=== PATIENT | female | born 1965 | race Caucasian/White ===

== ENCOUNTER 2018-08-01 15:43 | Inpatient (IN) ==
[2018-08-01] MEDS ORDERED: 0.9 % SODIUM CHLORIDE 1,000 ML IV ONE (15:59)
[2018-08-01] MEDS ORDERED: ONDANSETRON 4 MG/2 ML VIAL IV ONE (16:02)
[2018-08-01] MEDS ORDERED: HYDROmorphone 2 MG/ML VIAL IV PRN (16:02)
--- NOTE | 2018-08-01 16:14 | Emergency Department Note ---
Abdominal Pain HPI - General Chief Complaint: Abdominal Pain Stated Complaint: upper abd pain, chills, nausea/vomiting Time Seen by Provider: 08/01/18 16:00 Source: patient Mode of arrival: ambulatory Limitations: no limitations - History of Present Illness HPI Narrative: This patient started having right upper quadrant pain with nausea at 2 AM seemed to improve slightly and then got worse about noon today. She is in the ER now about 4 hours later. She has known gallstones and has had gallbladder pain in the past. However she does not have insurance and has been hesitant to get her gallbladder out. - Related Data Home Medications Medication Instructions Recorded Confirmed No Known Home Meds 03/03/17 08/01/18 Allergies Allergy/AdvReac Type Severity Reaction Status Date / Time No Known Drug Allergies Allergy Verified 08/01/18 15:47 Review of Systems All systems ED: reviewed and negative except as stated. 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 Absent: distention, guarding, rebound Abdominal tenderness: Present: RUQ Neurological: Present: alert Psychiatric: Present: normal affect, normal mood Skin: Present: warm, dry, intact Course Vital Signs Temperature 97.7 F 08/01/18 15:44 Pulse Rate 70 08/01/18 15:44 Respiratory Rate 18 08/01/18 15:44 Blood Pressure 199/121 08/01/18 15:44 Pulse Oximetry (%) 99 08/01/18 15:44 Temperature 97.7 F 08/01/18 15:44 Pulse Rate 81 08/01/18 19:31 Respiratory Rate 16 08/01/18 16:38 Blood Pressure 175/96 08/01/18 19:30 Pulse Oximetry (%) 100 08/01/18 19:31 Abdominal Pain - MDM Narrative Medical decision making narrative: This patient has a gallbladder full of stones and some stones and sludge in the common bile duct which is enlarged at 7.5 mm. Patient's liver function tests are normal with a white count is elevated at 14.7. I discussed this case with the surgeon who thinks of medical management and possibly ERCP first is in order. Also discussed the case with Dr. Sanchez who is on board with an ERCP tomorrow night. Dr. Avila will admit the patient to the hospital. - Lab Data Lab results reviewed: Yes I reviewed the patient's lab results. Result diagrams: 08/01/18 16:26 08/01/18 16:26 Lab Results 08/01/18 08/01/18 08/01/18 Range/Units 15:58 16:26 16:26 WBC 14.4 H (4.5-11.0) K/mcL RBC 5.41 H (4.00-5.20) M/mcL Hgb 15.8 H (12.0-15.0) g/dL Hct 47.6 (36.0-48.0) % MCV 88.0 (80.0-100.0) fL MCH 29.2 (26.0-34.0) pg MCHC 33.2 (31.0-36.0) g/dL RDW 12.8 (11.5-14.5) % Plt Count 286 (140-440) K/mcL MPV 8.0 (7.4-10.4) fL Total Counted 100 Seg Neutrophils % 89 H (38-78) % Band Neutrophils % 1 (0-10) % Monocytes % (Manual) 4 (1-12) % Reactive Lymphocytes 6 H (0-2) % Platelet Estimate Normal (NORMAL) RBC Morphology Normal (NORMAL) VBG Lactic Acid 0.8 (0.5-2.2) mmol/L Sodium 137 (133-145) mmol/L Potassium 4.2 (3.3-5.1) mmol/L Chloride 97 (96-108) mmol/L Carbon Dioxide 27 (22-30) mmol/L Anion Gap 13.0 (8-16) BUN 9 (6-20) mg/dl Creatinine 0.6 (0.6-1.1) mg/dl GFR Calculation 105 Glucose 116 H (70-105) mg/dL Calcium 9.2 (8.6-10.4) mg/dl Total Bilirubin 0.5 (0.0-1.0) mg/dL AST 14 (0-37) U/l ALT 10 (0-40) U/l Alkaline Phosphatase 75 (39-117) U/L Total Protein 7.5 (5.9-8.4) gm/dL Albumin 4.2 (3.2-5.2) gm/dL Globulin 3.3 (2.2-3.7) gm/dL Albumin/Globulin Ratio 1.3 (1.0-2.3) Lipase 13 (7-60) U/L Urine Color Urine Appearance Urine pH (5.0-9.0) Ur Specific [place] (1.000-1.035) Urine Protein (NEG) mg/dL Urine Glucose (UA) (NEG) mg/dL Urine Ketones (NEG) mg/dL Urine Occult Blood (<0.03) mg/dL Urine Nitrate (NEG) Urine Bilirubin (NEG) mg/dL Urine Urobilinogen (NEG) mg/dL Ur Leukocyte Esterase (NEG) /uL Urine RBC (0-1) /hpf Urine WBC (0-4) /hpf Ur Squamous Epith Cells (0-4) /hpf Amorphous Crystals (0) /hpf Urine Bacteria (0) /hpf Urine Mucus (0) /hpf Ur Culture Indicated? 08/01/18 Range/Units 18:32 WBC (4.5-11.0) K/mcL RBC (4.00-5.20) M/mcL Hgb (12.0-15.0) g/dL Hct (36.0-48.0) % MCV (80.0-100.0) fL MCH (26.0-34.0) pg MCHC (31.0-36.0) g/dL RDW (11.5-14.5) % Plt Count (140-440) K/mcL MPV (7.4-10.4) fL Total Counted Seg Neutrophils % (38-78) % Band Neutrophils % (0-10) % Monocytes % (Manual) (1-12) % Reactive Lymphocytes (0-2) % Platelet Estimate (NORMAL) RBC Morphology (NORMAL) VBG Lactic Acid (0.5-2.2) mmol/L Sodium (133-145) mmol/L Potassium (3.3-5.1) mmol/L Chloride (96-108) mmol/L Carbon Dioxide (22-30) mmol/L Anion Gap (8-16) BUN (6-20) mg/dl Creatinine (0.6-1.1) mg/dl GFR Calculation Glucose (70-105) mg/dL Calcium (8.6-10.4) mg/dl Total Bilirubin (0.0-1.0) mg/dL AST (0-37) U/l ALT (0-40) U/l Alkaline Phosphatase (39-117) U/L Total Protein (5.9-8.4) gm/dL Albumin (3.2-5.2) gm/dL Globulin (2.2-3.7) gm/dL Albumin/Globulin Ratio (1.0-2.3) Lipase (7-60) U/L Urine Color Straw Urine Appearance Clear Urine pH 7.0 (5.0-9.0) Ur Specific [place] 1.011 (1.000-1.035) Urine Protein Neg (NEG) mg/dL Urine Glucose (UA) Negative (NEG) mg/dL Urine Ketones 5/tr A (NEG) mg/dL Urine Occult Blood 0.03 A (<0.03) mg/dL Urine Nitrate Neg (NEG) Urine Bilirubin Neg (NEG) mg/dL Urine Urobilinogen Neg (NEG) mg/dL Ur Leukocyte Esterase Neg (NEG) /uL Urine RBC 3 H (0-1) /hpf Urine WBC 1 (0-4) /hpf Ur Squamous Epith Cells < 1 (0-4) /hpf Amorphous Crystals Few A (0) /hpf Urine Bacteria 0 (0) /hpf Urine Mucus Few (0) /hpf Ur Culture Indicated? No - Radiology Data Radiology results reviewed: Yes I reviewed the patient's radiology results. 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
[2018-08-01 16:49] LABS: Mean Corpuscular HGB Conc 33.2 g/dL (31.0-36.0); Mean Corpuscular Hemoglobin 29.2 pg (26.0-34.0); Platelet Count 286 K/mcL (140-440); RBC 5.41 M/mcL (4.00-5.20); Red Cell Distribution Width 12.8 % (11.5-14.5)
[2018-08-01 17:06] LABS: ALT/SGPT 10 U/l (0-40); Albumin 4.2 gm/dL (3.2-5.2); Albumin/Globulin Ratio 1.3 (1.0-2.3); Alkaline Phosphatase 75 U/L (39-117); Blood Urea Nitrogen 9 mg/dl (6-20); Lipase 13 U/L (7-60)
[2018-08-01 17:14] LABS: Band Neutrophils % 1 % (0-10); Monocytes % (Manual) 4 % (1-12); Platelet Estimate NORMAL (NORMAL); RBC Morphology NORMAL (NORMAL); Segmented Neutrophils % 89 % (38-78)
--- NOTE | 2018-08-01 17:20 | Ultrasound Report ---
History: Right upper quadrant pain, nausea, vomiting and chills FINDINGS: The gallbladder is distended and filled with a large amount of sludge and numerous small stones. Most the stones are noncalcified. They were nonmobile when the patient was turned. The wall is mildly thickened, measuring up to 3.6 mm. There was tenderness while scanning over the gallbladder. The extrahepatic bile ducts are dilated and measure up to 7.5 mm. There are stones and sludge in the distal common bile duct which measure up to 5 x 18 mm in size. The liver is normal in size and homogeneous. There is no evidence of a mass or inflammation in the pancreas. No ascites is present. IMPRESSION: Cholelithiasis, mild cholecystitis and choledocholithiasis Dr. Luther was called with the results Interpreted and Authenticated by: Jose Enrique Lim 08/01/18
[2018-08-01] MEDS ORDERED: PIPERACILLIN SODIUM/TAZOBACTAM 3.375 GM in DEXTROSE 5% IN WATER 50 ML IV ONE (19:07)
[2018-08-01 19:19] LABS: Appearance,Urine CLEAR; Bacteria,Urine 0 /hpf (0); Bilirubin,Urine NEG (NEG); Color,Urine STRAW; Glucose,Urine (UA) NEGATIVE (NEG); Leukocyte Esterase,Urine NEG /uL (NEG); Mucus,Urine FEW /hpf (0); Protein,Urine NEG (NEG); Specific Gravity,Urine 1.011 (1.000-1.035); Urine Amorphous Crystals FEW /hpf (0); Urine Blood 0.03 mg/dL (<0.03); Urine RBC 3 /hpf (0-1); Urine Squamous Epithelial Cell < 1 /hpf (0-4); Urine WBC 1 /hpf (0-4); Urobilinogen,Urine NEG (NEG)
[2018-08-01] MEDS ORDERED: FAMOTIDINE/PF 20 MG/2 ML VIAL IV SCH (21:00)
[2018-08-01] MEDS ORDERED: HEPARIN 5,000 UNIT/ML VIAL SQ SCH (21:00)
[2018-08-01] MEDS ORDERED: ONDANSETRON 4 MG/2 ML VIAL IV PRN (21:29)
[2018-08-01] MEDS ORDERED: LABETALOL 5 MG/ML ML IV PRN (21:29)
[2018-08-01] MEDS ORDERED: ACETAMINOPHEN 325 MG TABLET PO PRN (21:29)
[2018-08-01] MEDS ORDERED: NALOXONE HCL 0.4 MG/ML VIAL IV PRN (21:29)
[2018-08-01] MEDS ORDERED: HYDROcodone/APAP 5/325MG TABLET PO PRN (21:29)
[2018-08-01] MEDS ORDERED: DEXTROSE 5%-1/2NS W/20MEQ KCL 1,000 ML IV SCH (21:30)
--- NOTE | 2018-08-01 21:34 | Internal Med History&Physical ---
Medical - H&P: HPI Patient information: Note initiated : 08/01/18 at 9:28 pm Service Date, if different from initiated Date: [] Patient: Jessie Nguyen a 52 y/o F admitted on 08/01/18 for upper abd pain, chills, nausea/vomiting. Chief Complaint: [] History of present illness: Ms. Nguyen is a 52 year old F with h/o gall stones presents to the ER today with complaints of abdominal pain. pain started around 2 AM , epigastric, dull pain, which then moved to the right upper quadrant, patient changed character from dull to crampy pain, pain got progressively worse, worse with food, no reliving factors. The patient also admits to having chills and dizziness, no fever She denies any other acute complaints She has no chest pain, palpitations, shortness of breath, no edema feet, some left shoulder pain which is mechanical in nature, no headache, changes in vision , no difficulty in swallowing. She denies any complaints, admits to intermittent constipation. In the ER the patient was afebrile HR in 70's BP very high 190/120, oxygen sat > 90 on RA labs showed leucocytosis. 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 Medical - H&P: PMH Medical history: HTN - not on meds arthritis-psoriatric Hypothyroidism- resolved as per pt Gall stones anxiety Surgical history: Appendectomy, 1985. Right parotidectomy, 1990. Pertinent family history: mother -HTN Social history: smoker, half pack for 2 yrs daily thc user- notes for therapeutic purpose social etoh denies ivda Medical - H&P: Meds Home Medications Medication Instructions Recorded Confirmed Type No Known Home Meds 03/03/17 08/01/18 History Allergies Allergy/AdvReac Type Severity Reaction Status Date / Time Sulfa (Sulfonamide AdvReac Rash Verified 08/01/18 21:28 Antibiotics) Medical - H&P: Exam - Constitutional Vitals: Temp Pulse Resp BP Pulse Ox 97.7 F 69 16 181/107 100 08/01/18 15:44 08/01/18 20:42 08/01/18 16:38 08/01/18 20:31 08/01/18 20:42 Exam: GENERAL: The patient is a well-developed, well-nourished in no apparent distress. Is alert and oriented x3. VITAL SIGNS: Reviewed and as noted elsewhere. HEENT: Head is normocephalic and atraumatic. Extraocular muscles are intact. Pupils are equal, round, and reactive to light. Nares appeared normal. Mouth appears any without lesions. Mucous membranes are moist. NECK: Normal to inspection, Supple, No lymphadenopathy or thyromegaly. LUNGS: Air entry equal on both sides, no wheezing, crackles or rhonchi noted. No accessory muscles of respiration HEART: Regular rate and rhythm normal, S1 and S2 heard, no Gallop, S3 or Rub Noted, No Gross murmur heard. ABDOMEN: Soft, epigastric and right upper quadrant tenderness. no gross organomegaly palpable. EXTREMITIES: No cyanosis, clubbing, rash, lesions or edema. NEUROLOGIC: Cranial nerves II through XII are grossly intact. Motor and Sensory System Grossly Intact PSYCHIATRIC: Normal affect, Normal Mood. Appropriate Behavior. SKIN: No ulceration or wounds noted, No jaundice, No rash noted. Medical - H&P: Reslt - Labs CBC & Chem 7: 08/01/18 16:26 08/01/18 16:26 Labs: Short CBC 08/01/18 Range/Units 16:26 WBC 14.4 H (4.5-11.0) K/mcL Hgb 15.8 H (12.0-15.0) g/dL Hct 47.6 (36.0-48.0) % Plt Count 286 (140-440) K/mcL BMP 08/01/18 16:26 Sodium 137 Potassium 4.2 Chloride 97 Carbon Dioxide 27 BUN 9 Creatinine 0.6 Glucose 116 H Calcium 9.2 Liver Function 08/01/18 Range/Units 16:26 Total Bilirubin 0.5 (0.0-1.0) mg/dL AST 14 (0-37) U/l ALT 10 (0-40) U/l Alkaline Phosphatase 75 (39-117) U/L Albumin 4.2 (3.2-5.2) gm/dL Urine 08/01/18 Range/Units 18:32 Urine Color Straw Urine Appearance Clear Urine pH 7.0 (5.0-9.0) Ur Specific [place] 1.011 (1.000-1.035) Urine Protein Neg (NEG) mg/dL Urine Glucose (UA) Negative (NEG) mg/dL Medical - H&P: A/P - Narrative A/P Narrative: A/P Hypertensive urgency- Due to non complaince with bp meds, vs acute pain from the gall stones. monitor closely, adequate anagesia, IV labetalol , monitor on tele for now. Choledocholithiasis, with cholecystitis- GI to plan for ERCP tomorrow, Surgery consulted for possible cholecystectomy, PT started on IV zosysn Hypothyroidism/ posiarisis- stable does not take any medications at this time, was on chr pain meds for same, and thyroid supplement in past, no uses THC DVT hep sq Diet - regular, anticipate npo tomorrow for procedure. Full code.
[2018-08-01] MEDS: 0.9 % SODIUM CHLORIDE 10 ML SYRINGE IV SCH (22:33)
[2018-08-02] MEDS: PIPERACILLIN SODIUM/TAZOBACTAM 3.375 GM in DEXTROSE 5% IN WATER 50 ML IV SCH ×5 (00:41→23:51)
[2018-08-02] MEDS: 0.9 % SODIUM CHLORIDE 10 ML SYRINGE IV SCH ×3 (05:57→20:59)
[2018-08-02 07:05] LABS: Basophils # (Auto) 0 K/mcL (0.0-0.3); Basophils % (Auto) 0.1 % (0.0-2.0); Eosinophils # (Auto) 0.1 K/mcL (0.0-0.7); Eosinophils % (Auto) 0.8 % (0.0-7.0); Granulocytes % (Auto) 86.9 % (38.0-78.0); Lymphocytes # (Auto) 0.7 K/mcL (1.5-4.8); Lymphocytes % (Auto) 5.5 % (15.5-49.0); Mean Cell Volume 88.1 fL (80.0-100.0); Mean Corpuscular HGB Conc 33.4 g/dL (31.0-36.0); Mean Corpuscular Hemoglobin 29.4 pg (26.0-34.0); Monocytes # (Auto) 0.9 K/mcL (0.1-0.9); Monocytes % (Auto) 6.7 % (1.0-12.0); Platelet Count 261 K/mcL (140-440); RBC 5.03 M/mcL (4.00-5.20); Red Cell Distribution Width 13.1 % (11.5-14.5)
[2018-08-02 07:41] LABS: ALT/SGPT 156 U/l (0-40); Albumin 3.8 gm/dL (3.2-5.2); Albumin/Globulin Ratio 1.3 (1.0-2.3); Alkaline Phosphatase 116 U/L (39-117); Bilirubin,Direct 0.3 mg/dL (0.0-0.3); Blood Urea Nitrogen 7 mg/dl (6-20); Gamma Glutamyl Transpeptidase 135 U/L (5-36); Uric Acid 2.4 mg/dL (2.5-8.0)
--- NOTE | 2018-08-02 08:06 | Consultation ---
DATE OF CONSULTATION: 08/01/2018 CHIEF COMPLAINT: Common bile duct stone and gallstones in the gallbladder. HISTORY OF PRESENT ILLNESS: The patient is a 52-year-old white female for whom GI consultation is requested regarding the finding of common bile duct stones on ultrasound earlier today. The patient tells me that she has had off and on abdominal pain for about 10 years now. She will typically have pain lasting 30 to 60 minutes at a time. Fortunately, the pain has not been very frequent or severely intense. She has never had jaundice. She has been reluctant to have gallbladder surgery, I believe because of the expense. However, beginning at about 2:00 a.m. this morning and extending to 7 a.m. she had severe pain at the right upper quadrant that was more intense than she has experienced in the past. She has had chills all day long. She has not noticed dark tea-colored urine. No vomiting. She came to the emergency room and has had an ultrasound performed showing multiple stones in the gallbladder, a 7.5 mm common bile duct with stones and/or sludge within the common duct. Her liver chemistries are actually normal. White count is 14,700. She does not drink alcohol. She does smoke a half pack of cigarettes per day. PAST MEDICAL HISTORY: Only mild hypertension, but she is on no medications. PAST SURGICAL HISTORY: Parotid surgery and in 1984 an appendectomy. MEDICATIONS: None at home. ALLERGIES: SULFA. SOCIAL HISTORY: Half pack per day smoker. No alcohol. She is . 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 FAMILY HISTORY: Negative for GI malignancies and/or biliary disease. She has never had a colonoscopy for screening. She understands that she is due for that and that can certainly be arranged when she wishes. PHYSICAL EXAMINATION: GENERAL: The patient is awake and alert, afebrile. Vital signs stable. HEENT: Airway is patent. SKIN: Without stigmata of chronic liver disease. LUNGS: Clear bilaterally to auscultation. CARDIAC: No respiratory distress. ABDOMEN: Soft and nondistended. There is moderate right upper quadrant tenderness and Sierra's sign present. No splenomegaly. No evident ascites. EXTREMITIES: Without edema. CARDIAC: Regular rate and rhythm. No gallop. LABORATORY STUDIES: The white count is elevated at 14,700, lactic acid normal. The liver chemistries are normal. ASSESSMENT AND RECOMMENDATIONS: Even though the patient's liver chemistries are normal, there is ultrasound evidence of stones in the common bile duct. With this in mind, I will plan an ERCP tomorrow afternoon. If Dr. Cardozo elects to proceed to a cholecystectomy before then, I would request an intraoperative cholangiogram to see if the stones can be flushed through the common bile duct; thereby possibly avoiding the need for ERCP. However, if the cholecystectomy is not performed before tomorrow afternoon then I will plan to do the ERCP with sphincterotomy and stone extraction. Miguel I have discussed and brenda pictures of ERCP and the sphincterotomy and interventions to remove stones. I have told her about the risks of the procedure including, but not limited to, bleeding and perforation and pancreatitis. She wishes to proceed. I agree with placing the patient on antibiotic coverage (Zosyn is reasonable). JCM:lola Job ID: [id number] Doc ID: [id number] Wojciech Cardozo MD
[2018-08-02] MEDS ORDERED: LABETALOL 5 MG/ML ML IV PRN (08:19)
[2018-08-02] MEDS ORDERED: ACETAMINOPHEN 325 MG TABLET PO PRN (08:19)
[2018-08-02] MEDS ORDERED: ONDANSETRON 4 MG/2 ML VIAL IV PRN (08:19)
[2018-08-02] MEDS ORDERED: NALOXONE HCL 0.4 MG/ML VIAL IV PRN (08:19)
[2018-08-02] MEDS ORDERED: HYDROcodone/APAP 5/325MG TABLET PO PRN (08:19)
[2018-08-02] MEDS: FAMOTIDINE/PF 20 MG/2 ML VIAL IV SCH ×2 (08:57→21:10)
[2018-08-02] MEDS: HEPARIN 5,000 UNIT/ML VIAL SQ SCH ×2 (08:58→21:10)
[2018-08-02] MEDS: DEXTROSE 5%-1/2NS W/20MEQ KCL 1,000 ML IV SCH ×2 (12:13→21:56)
[2018-08-02] MEDS ORDERED: PROPOFOL 0 ML IV ONE (14:36)
[2018-08-02] MEDS ORDERED: MIDAZOLAM 2 MG/2 ML VIAL ONE ×2 (14:36→15:35)
[2018-08-02] MEDS ORDERED: PROPOFOL 20 ML IV ONE ×2 (14:36→15:35)
[2018-08-02] MEDS: MIDAZOLAM 2 MG/2 ML VIAL IV ONE ×2 (14:46→17:23)
--- NOTE | 2018-08-02 14:53 | General Surgery Progress Note ---
Surgical - Auxillary Note - Subjective Patient Information: Note initiated : 08/02/18 at 2:52 pm Service Date, if different from initiated Date: [] Patient: Jessie Nguyen 52 y/o F admitted on 08/01/18 for upper abd pain, chills, nausea/vomiting. Chief Complaint: [] Patient resting in bed at this visit. Some increased RUQ pain today. No nausea or emesis. Had some clear liquids last night. Now NPO for planned ERCP. Vital Signs Temp Pulse Resp BP Pulse Ox 97.7 F 80 16 143/82 96 08/02/18 12:00 08/02/18 12:00 08/02/18 12:00 08/02/18 12:00 08/02/18 12:00 Period Temp Pulse Resp BP Sys/Phelps Pulse Ox Last 24 Hr 97.1 F-98.2 F 67-89 16-20 143-211/82-123 96-100 Intake and Output 08/02/18 08/02/18 08/02/18 05:59 13:59 21:59 Intake Total 140 / 140 1340 / 1340 Output Total 350 / 350 850 / 850 Balance -210 / -210 490 / 490 PE: HEENT: sclera are white. ABD: soft, tender in mid epigastric area and RUQ. No rebound or guarding. CBC and Chem 7 08/02/18 05:55 08/02/18 05:55 A/P: choledocholithiasis with duct obstruction. Rising LFTs. ERCP scheduled for this afternoon. cholelithiasis.
[2018-08-02] MEDS ORDERED: GLUCAGON,HUMAN RECOMBINANT 1 MG VIAL IV ONE ×2 (15:30→15:35)
--- NOTE | 2018-08-02 15:33 | Internal Med Progress Note ---
Medical - PN: Subj Patient information: Note initiated : 08/02/18 at 3:30 pm Service Date, if different from initiated Date: [] Patient: Jessie Nguyen a 52 y/o F admitted on 08/01/18 for upper abd pain, chills, nausea/vomiting. Chief Complaint: [] Interval history: Ms. Nguyen is a 52 year old F with h/o gall stones presents to the ER today with complaints of abdominal pain. pain started around 2 AM , epigastric, dull pain, which then moved to the right upper quadrant, patient changed character from dull to crampy pain, pain got progressively worse, worse with food, no reliving factors. The patient also admits to having chills and dizziness, no fever She denies any other acute complaints She has no chest pain, palpitations, shortness of breath, no edema feet, some left shoulder pain which is mechanical in nature, no headache, changes in vision , no difficulty in swallowing. She denies any complaints, admits to intermittent constipation. In the ER the patient was afebrile HR in 70's BP very high 190/120, oxygen sat > 90 on RA labs showed leucocytosis. 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 08/02 Pt seen examined no acute oernight issues, lft rising today, her pain has moved down a bit to mid abdomen. no nausea, reported feels a bit better planned ercp today Pertinent ROS: Denies headache, dizziness Denies chest pain, palpitations Denies cough or shortness of breath present abdominal pain, no nausea or vomiting. - Constitutional Vitals: Vital Signs Temp Pulse Resp BP Pulse Ox 97.7 F 80 16 143/82 96 08/02/18 12:00 08/02/18 12:00 08/02/18 12:00 08/02/18 12:08/02/18 12:00 Period Temp Pulse Resp BP Sys/Phelps Pulse Ox Last 24 Hr 97.1 F-98.2 F 67-89 16-20 143-211/82-123 96-100 Intake and Output 08/02/18 08/02/18 08/02/18 05:59 13:59 21:59 Intake Total 140 / 140 1340 / 1340 Output Total 350 / 350 850 / 850 Balance -210 / -210 490 / 490 Intake & Output: Intake & Output 08/02/18 08/02/18 08/02/18 05:59 13:59 21:59 Intake Total 140 / 140 1340 / 1340 Output Total 350 / 350 850 / 850 Balance -210 / -210 490 / 490 Intake: IV 50 / 50 1100 / 1100 Zosyn 3.375 gm In Dextrose 5% 50 / 50 50 / 50 in Water 50 ml @ 100 mls/hr IV Q6H [facility] Rx#:[id number] Oral 90 / 90 240 / 240 Output: Void Amount 350 / 350 850 / 850 Other: Meal Breakfast Percent of Meal Consumed 100% Feeding Ability Independent Urine Appearance Clear Urine Color Straw Urine Odor Normal Exam: Constitutional; Afebrile, cooperative, alert, not in distress. Eyes- No icterus, , No periorbital swelling Ears- Ext ear normal, hearing normal to conversation. Neck- Midline trachea, supple Respiratory system: Air Entry equal on both sides, No crackles or wheezing, no rhonchi. CVS- Rate rhythm regular, S1,S2 heard, no gallop, no rub. Abdomen- Soft tender epigastric, right upper quadrant abdomen, no organomegaly, no guarding or rigidity, VENEER REDRIER- AOOx3, moving all extremities, no gross focal deficit noted. Medical - PN: Obj Da - Labs CBC & Chem 7: 08/02/18 05:55 08/02/18 05:55 Labs: Abnormal Lab Results 08/02/18 08/02/18 08/01/18 05:55 05:55 18:32 WBC 12.7 H RBC Hgb Gran % 86.9 H Lymph % (Auto) 5.5 L Gran # 11.0 H Lymph # (Auto) 0.7 L Seg Neutrophils % Reactive Lymphocytes Glucose 123 H Uric Acid 2.4 L Total Bilirubin 1.4 H GGT 135 H AST 196 H ALT 156 H Urine Ketones 5/tr A Urine Occult Blood 0.03 A Urine RBC 3 H Amorphous Crystals Few A 08/01/18 08/01/18 16:26 16:26 WBC 14.4 H RBC 5.41 H Hgb 15.8 H Gran % Lymph % (Auto) Gran # Lymph # (Auto) Seg Neutrophils % 89 H Reactive Lymphocytes 6 H Glucose 116 H Uric Acid Total Bilirubin GGT AST ALT Urine Ketones Urine Occult Blood Urine RBC Amorphous Crystals Meds: Medications Acetaminophen (Tylenol) 650 mg PO Q6HP PRN PRN Reason: PAIN/FEVER > 101 Hydrocodone Bitart/Acetaminophen (Borger 5/325mg) 1 tab PO Q4HP PRN PRN Reason: PAIN LEVEL 3-6 Famotidine (Pepcid) 20 mg IV Q12 [facility] Last Admin: 08/02/18 08:57 Dose: 20 mg Heparin Sodium (Porcine) (Heparin) 5,000 unit SQ Q12 [facility] Last Admin: 08/02/18 08:58 Dose: 5,000 unit Potassium Chloride/Dextrose/Sod Cl (Dextrose 5%-1/2ns W/20meq Kcl) 1,000 mls @ 75 mls/hr IV .[id number] [facility] Last Admin: 08/02/18 12:13 Dose: 75 mls/hr Piperacillin Sod/Tazobactam (Sod 3.375 gm/ Dextrose) 50 mls @ 100 mls/hr IV Q6H [facility] Last Infusion: 08/02/18 12:40 Dose: Infused Labetalol HCl (Trandate) 10 mg IV Q4HP PRN PRN Reason: if sbp > 180 and or dbp > 100 Morphine Sulfate (Morphine) 2 mg IV Q2HP PRN PRN Reason: pain > 6 Last Admin: 08/02/18 12:20 Dose: 2 mg Naloxone HCl (Narcan) 0.1 mg IV Q2MIN PRN PRN Reason: Opiate Reversal Ondansetron HCl (Zofran) 4 mg IV Q4HP PRN PRN Reason: Nausea And Vomiting Sodium Chloride (Saline Flush) 10 ml IV Q8 [facility] Last Admin: 08/02/18 13:33 Dose: Not Given Medical - PN: A/P - Time Spent With Patient Total time spent is greater than 50% in coordination of care (as documented) at patient's floor/unit and/or counseling patient: - Narrative A/P Narrative: A/P Hypertensive urgency- due to pain, IV labetalol prn, will need long-term bp medication, was on lisinopril in the past, will restart same if bp remains high. Choledocholithiasis, with cholecystitis- GI to plan for ERCP today, Surgery consulted for possible cholecystectomy, PT started on IV zosysn Hypothyroidism/ posiarisis- stable does not take any medications at this time, was on chr pain meds for same, and thyroid supplement in past, no uses THC DVT hep sq Diet - npo Full code. Medical - PN: Qual - VTE Deep Vein Thrombosis/Pulmonary Embolism Present on Admission: No
[2018-08-02] MEDS ORDERED: PROPOFOL 40 ML IV ONE (15:35)
--- NOTE | 2018-08-02 15:59 | Operative Note ---
DATE OF OPERATION: 08/02/2018 PROCEDURE: Esophagogastroduodenoscopy with biopsies and with twhzwex-rdy-xusem balloon dilatation of esophageal stricture and with vizm-brq-uush dilatation by bougie of the esophagus. FLEXOGRAPHIC PRINTING PRESS OPERATOR AND MULE SPINNER: Wojciech Ortiz M.D. ANESTHETIC USED: Propofol 230 mg IV and Versed 2 mg IV. PREOPERATIVE DIAGNOSIS: Esophageal stricturing preventing ERCP. POSTOPERATIVE DIAGNOSES: Evident eosinophilic esophagitis and significant Schatzki's ring requiring dilatations as described below. PROCEDURE IN DETAIL: Prior to the procedure, the patient had provided informed consent for ERCP. However, in the fluoroscopy unit I passed a duodenoscope via the mouth and at about the level of the upper or mid esophagus I could not pass the duodenoscope further without meeting significant resistance. I retried this a couple of times but again had the same result, and therefore I had to temporarily abandon the ERCP. I then proceeded with this EGD by passing a gastroscope. The gastroscope went into the esophagus, and it was evident immediately that there is significant eosinophilic esophagitis. There are linear furrows and significant rings in the esophagus to the point that the gastroscope is mildly slowed in its passage through the esophagus. I did not cause fracturing of the mucosa by passing the gastroscope, but it does feel like there is more resistance than would typically be present. At the distal esophagus, there is a substantial Schatzki's ring that does not allow the gastroscope to pass with moderate pressure. I then used forceps to take biopsies of the esophagus throughout its length to confirm suspected eosinophilic esophagitis. I then used the biopsy forceps to cut the Schatzki's ring enough that I was able to pass the scope into the stomach. The stomach and the duodenum appeared normal. Gastric retroflex view was normal. I then passed the scope to the antrum and I began nncx-qvu-zjoj dilatations. I started with a 33-Brazilian bougie over the wire with fluoroscopic guidance. The scope was reinserted and no fracturing had occurred. I then used a 36 and 39-Brazilian dilator over wire in a similar manner and again rescoped after each and found no fracturing. I then went to a 42-Brazilian dilator over wire and rescoped. I then found that the 42-Brazilian dilator did induce a fairly long, about 4 cm linear, fracturing of the aunja-wc-viy esophagus typical of eosinophilic esophagitis fracturing. This would be generally in the area where I was finding obstruction to the passage of the duodenoscope. I then proceeded to use a axdnhgf-lmi-tshdh balloon dilator to dilate the Schatzki's ring further to 15 mm diameter. No substantial fracturing occurred with that. Then I inflated the balloon to 16.5 mm diameter and achieved a significant fracture of the Schatzki's ring. COMPLICATIONS: None immediate. RECOMMENDATIONS: 1. Follow up the biopsy results. The patient will probably need at least omeprazole for eosinophilic esophagitis if the diagnosis is confirmed as I suspect it will be. 2. We will proceed to ERCP once again now that hopefully we can pass the scope without any further difficulty. MARCO:maris Job ID: [id number] Doc ID: [id number] Wojciech Ortiz MD
[2018-08-02] MEDS: PROPOFOL 200 MG/20 ML VIAL IV ONE ×2 (17:23→18:16)
--- NOTE | 2018-08-02 18:16 | Consultation ---
DATE OF CONSULTATION: 08/01/2018 CHIEF COMPLAINT: The patient is seen in consultation at the request of Dr. Mick Luther in the Emergency Department for choledocholithiasis and abdominal pain. HISTORY OF PRESENT ILLNESS: Ms. Nguyen is a 52-year-old woman who presented to the emergency department with complaints of upper abdominal pain since the night before presentation to the ER. History is taken from the patient. She states that her pain began as a dull belly ache about 2:00 a.m. the night before. The ache has persisted in the center upper abdomen with developing of a cramping that has been intermittent. She also reports that the pain has increased in severity and has also started to spread into the right upper abdomen as well as in the mid upper abdomen. She has had one episode of emesis. She describes the pain as waxing and waning in severity, but it has not gone away since it started. Progression of pain has increased to a level of 7 to 8 in severity out of 10. The patient presented to the Emergency Department for further evaluation. She states that she does have a known history of biliary pain beginning about 10 years ago. That pain usually involved right upper quadrant aching and a pinching sensation. She states that her current pain is different in character and much more severe than those pains have been in the past. PAST MEDICAL HISTORY: The patient does not have regular medical care, but denies history of diabetes or kidney disease. She reports a history of hypertension, but is on no medications for this. She also reports a prior history of hypothyroidism, but states she is on no medications for this. She reports prior history of depression and anxiety but is on no medications for this. She states that all of these illnesses have been improved since regular use of tinctures of cannabis or use of cannabis through vaping cannabis concentrates. Appendectomy in 1985 and right parotidectomy in 1990. REVIEW OF SYSTEMS: CONSTITUTIONAL: Denies fevers or chills. CARDIOVASCULAR: Denies history of CT. Denies chest pain or pressure or palpitations. States that she can walk up 2 flights of stairs without issue. PULMONARY: No new cough or production of sputum. GI: Abdominal pain with episode of emesis as per above. : No dysuria or hematuria. ENDOCRINE: Denies history of diabetes. 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 She reports occasional alcohol use. She smokes about 1-1/2 pack of cigarettes per day for the past 2 years. She reports regular use of cannabis tinctures and concentrates that she uses through a vaporizer for management of other issues as stated above. Denies any methamphetamine use. Denies any IV drug use. FAMILY HISTORY: Significant for hypertension in her mother. ALLERGIES: SULFA DRUGS. MEDICATIONS: No prescription medication use. PHYSICAL EXAMINATION: VITAL SIGNS: Temperature 97.7, pulse 69, respirations 16, blood pressure 181/107, O2 saturations 100% on room air. GENERAL APPEARANCE: Ms. Nguyen is a well-developed, well-nourished woman in no acute distress though she does appear to be in pain. She has been medicated with Dilaudid prior to my exam. HEENT: Head is normocephalic. Sclerae are white. Mucous membranes are moist. CHEST: Breath sounds are clear bilaterally. No rales, wheezes are heard. No use of accessory respiratory musculature. CARDIOVASCULAR: Reveals regular rate and rhythm. ABDOMEN: Soft and nondistended. There is tenderness in the midepigastric region and into the right upper quadrant without obvious Sierra sign. EXTREMITIES: No cyanosis, or edema. NEUROLOGIC: The patient is alert and oriented to person, place, circumstance and time. Cranial nerves II-XII are grossly intact. LABS AND STUDIES: CBC drawn in the Emergency Department shows an elevated white blood cell count of 14.4, hemoglobin of 15.8, hematocrit 47.6 and platelets of 286. There is a left shift of 89% neutrophils. Serum chemistry shows sodium of 137, potassium 4.2, chloride 97, CO2 27, BUN 9, creatinine 0.6, glucose 116, calcium 9.2, total bilirubin 0.5, AST 14, ALT 10, alkaline phosphatase 75, albumin 4.2 and lipase 13. Imaging done in the Emergency Department includes abdominal ultrasound. Ultrasound shows distended gallbladder filled with a large amount of sludge and numerous small stones, which are mostly noncalcified. Wall is mildly thickened measuring 3.6 mm. There is tenderness scanning over the gallbladder. The extrahepatic bile ducts are dilated to 7.5 mm and stones and sludge are noted in the distal common duct, which measures 5 x 18 mm in size. FINAL IMPRESSION: Cholelithiasis with mild cholecystitis and choledocholithiasis. ASSESSMENT AND PLAN: Calculus cholecystitis with choledocholithiasis. The patient is admitted to the medicine service with GI consultation obtained for consideration of ERCP for clearance of the common duct due to finding of dilated intrahepatic ducts with a finding of stones and sludge in the common duct. Post-ERCP cholecystectomy is recommended for treatment of the calculus cholecystitis and prevention of further complications from cholelithiasis. In the meantime, patient will be managed with IV fluid hydration and antibiotics with plans for ERCP as already outlined. RC:hn Job ID: [id number] Doc ID: [id number] Joana Cardozo MD
[2018-08-03] MEDS: PIPERACILLIN SODIUM/TAZOBACTAM 3.375 GM in DEXTROSE 5% IN WATER 50 ML IV SCH (05:38)
[2018-08-03] MEDS: 0.9 % SODIUM CHLORIDE 10 ML SYRINGE IV SCH (05:38)
[2018-08-03 06:23] LABS: Basophils # (Auto) 0 K/mcL (0.0-0.3); Basophils % (Auto) 0 % (0.0-2.0); Eosinophils # (Auto) 0.1 K/mcL (0.0-0.7); Eosinophils % (Auto) 0.9 % (0.0-7.0); Granulocytes % (Auto) 89.7 % (38.0-78.0); Lymphocytes # (Auto) 0.6 K/mcL (1.5-4.8); Mean Cell Volume 88.8 fL (80.0-100.0); Mean Corpuscular HGB Conc 33.3 g/dL (31.0-36.0); Mean Corpuscular Hemoglobin 29.6 pg (26.0-34.0); Monocytes # (Auto) 0.8 K/mcL (0.1-0.9); Monocytes % (Auto) 5.4 % (1.0-12.0); Platelet Count 228 K/mcL (140-440); RBC 4.86 M/mcL (4.00-5.20); Red Cell Distribution Width 12.7 % (11.5-14.5)
[2018-08-03 06:45] LABS: ALT/SGPT 229 U/l (0-40); Albumin 3.1 gm/dL (3.2-5.2); Alkaline Phosphatase 187 U/L (39-117); Bilirubin,Direct 5.3 mg/dL (0.0-0.3); Blood Urea Nitrogen 7 mg/dl (6-20); Gamma Glutamyl Transpeptidase 140 U/L (5-36); Uric Acid 1.8 mg/dL (2.5-8.0)
[2018-08-03 07:12] LABS: Lipase 569 U/L (7-60)
--- NOTE | 2018-08-03 07:14 | Operative Note ---
DATE OF OPERATION: 08/02/2018 PROCEDURE: ERCP with pancreatic stent placement. VICE PROVOST AND BACK HOE MACHINE OPERATOR: Wojciech Ortiz MD ANESTHETIC USED: Versed 2 mg IV, propofol 200 mg IV, glucagon 1.25 mg IV. PREOPERATIVE DIAGNOSIS: Patient with symptomatic gallstones, abnormal liver chemistries as of this morning and last night had an ultrasound demonstrating small common bile duct stone or stones. POSTOPERATIVE DIAGNOSES: Failed cholangiogram. Pancreatic stent placed as noted below. Eosinophilic esophagitis, Schatzki's ring. INFORMED CONSENT: Prior to the procedure the patient provided her own informed consent. The patient was evaluated and considered medically fit for endoscopy. DESCRIPTION OF PROCEDURE: With the patient in the semi-prone position, a side-viewing duodenoscope was advanced via the mouth through the esophagus under direct vision. The scope was advanced. I should point out that before performing the ERCP today I had to dilate the esophagus because I found unexpected eosinophilic esophagitis as well as a tight Schatzki's ring. This was addressed by EGD immediately preceding this ERCP. The scope was advanced without significant difficulty through the esophagus to the stomach and then to the second portion of the duodenum. The ampulla appears normal. I used a wire guided technique trying to achieve selective cannulation of the common bile duct, but the pancreatic duct was repeatedly entered. It looked odd that the pancreatic duct was almost vertical for a long period of time before telling off towards the midline. I tried to advance the wire again and on three occasions the wire went into the same apparent pancreatic duct. To convince myself that I was in the pancreatic duct, I did inject a slight bit of contrast which looked like it was pancreatic duct and therefore I did not inject any more contrast. I then placed a 4 Telugu 5 cm pancreatic stent to try to prevent pancreatitis but also to try to facilitate selective cannulation of the common bile duct. I then used the sphincterotome again with a wire guided technique, yet even with the pancreatic stent in place, the wire repeatedly went into the pancreatic duct on two more occasions and so I stopped and did not attempt further procedure today. COMPLICATIONS: None immediate. RECOMMENDATIONS: Follow up and check liver chemistries and pancreatic enzymes again tomorrow. I have talked to Dr. Cardozo. Hopefully, an intraoperative cholangiogram can be performed at the time of cholecystectomy tomorrow. If intraoperative cholangiogram does confirm that there stone in the duct that cannot be flushed out then I will ask Dr. Duong to attempt ERCP based on intraoperative cholangiogram. Dr. Duong will be here tomorrow. JCM:kh Job ID: [id number] Doc ID: [id number] Wojciech Ortiz MD
[2018-08-03] MEDS ORDERED: LACTATED RINGERS 1,000 ML IV SCH ×2 (07:15→09:15)
--- NOTE | 2018-08-03 07:36 | General Surgery Progress Note ---
Surgical - Auxillary Note - Subjective Patient Information: Note initiated : 08/03/18 at 7:28 am Service Date, if different from initiated Date: [] Patient: Jessie Nguyen 52 y/o F admitted on 08/01/18 for upper abd pain, chills, nausea/vomiting. Chief Complaint: [] Patient is sitting up in bed. She reports increased pain and pressure sensation in Right upper abdomen. ERCP attempted last evening but unsuccessful in cannulating the common bile duct. Patient is jaundiced this morning. Vital Signs Temp Pulse Resp BP Pulse Ox 98.8 F 87 16 108/71 96 08/03/18 07:00 08/03/18 03:00 08/03/18 07:00 08/03/18 07:00 08/03/18 07:00 Period Temp Pulse Resp BP Sys/Phelps Pulse Ox Last 24 Hr 97.7 F-98.9 F 76-94 14-18 108-144/71-108 96-100 Intake and Output 08/02/18 08/03/18 08/03/18 21:59 05:59 13:59 Intake Total 50 / 50 50 / 50 1050 / 1050 Output Total 650 / 650 675 / 675 Balance -600 / -600 50 / 50 375 / 375 Weight 154 lb PE: General: alert and oriented X3 HEENT: sclera icteric Chest: clear in upper davalos bilaterally, diminished at bases. No wheezes or rales. CV: regular rhythm and rate. ABD: soft, tender in right abdomen--increased from yesterday. No guarding. Laboratory Results - last 24 hr 08/02/18 08/03/18 08/03/18 05:55 05:14 05:14 WBC 15.0 H RBC 4.86 Hgb 14.4 Hct 43.2 MCV 88.8 MCH 29.6 MCHC 33.3 RDW 12.7 Plt Count 228 MPV 8.4 Gran % 89.7 H Lymph % (Auto) 4.0 L Floyd % (Auto) 5.4 Eos % (Auto) 0.9 Baso % (Auto) 0 Gran # 13.5 H Lymph # (Auto) 0.6 L Floyd # (Auto) 0.8 Eos # (Auto) 0.1 Baso # (Auto) 0 Sodium 136 136 Potassium 4.2 4.3 Chloride 99 99 Carbon Dioxide 24 25 Anion Gap 13.0 12.0 BUN 7 7 Creatinine 0.7 0.8 GFR Calculation 100 85 Glucose 123 H 102 Uric Acid 2.4 L 1.8 L Calcium 8.8 8.4 L Phosphorus 3.0 2.3 L Magnesium 2.2 2.1 Total Bilirubin 1.4 H 6.8 H Direct Bilirubin 0.3 5.3 H GGT 135 H 140 H AST 196 H 167 H ALT 156 H 229 H Alkaline Phosphatase 116 187 H Lactate Dehydrogenase 231 163 Total Protein 6.8 6.1 Albumin 3.8 3.1 L Globulin 3.0 3.0 Albumin/Globulin Ratio 1.3 1.0 Triglycerides 95 55 Lipase 569 H TSH 3.61 A/P: Cholecystits with choledocholithiasis. Patient underwent attempted ERCP yesterday with no success in cannulating the CBD. Bilirubin was mildly elevated yesterday with normal direct component. This morning Tbili and Dbili levels significantly elevated suggesting continued obstruction of duct. Would recommend further attempted clearance of CBD before cholecystectomy. If unable to do this then surgical intervention needed. Discussed case with Dr. Hicks in GI medicine at [place]. He agrees it reasonable to transfer patient for continued care. Situation also discussed with the patient and her family and she agrees with this plan. Discussed with our hospitalist, Dr. Avila, who will be in touch with the accepting hospitalist in [place] and will make final arrangements for transfer.
--- NOTE | 2018-08-03 08:13 | Transfer Summary ---
Transfer Discharge Sum: Prov Patient information: Note initiated : 08/03/18 at 8:10 am Service Date, if different from initiated Date: [] Patient: Jessie Nguyen 52 y/o F admitted on 08/01/18 for upper abd pain, chills, nausea/vomiting. Chief Complaint: [] Date of admission: 08/01/18 21:11 Discharge Date: 08/03/18 Primary care physician: PCP No Admitting clinician: Julien Avila Consults: 08/02/18 08:54 Consult to Physician [CONS] Routine Comment: Consulting Provider: Joana Cardozo Reason For Exam: Physician to Consult Discharging clinician: Julien Avila Receiving physician/facility: Dr Espinal- GI Dr Ballard - Hospitalist Transfer Discharge Sum: Med - Medications Active and Home Medications: Home Medications No Known Home Meds 03/03/17 [History Confirmed 08/01/18] Active Medications Acetaminophen (Tylenol) 650 mg PO Q6HP PRN PRN Reason: PAIN/FEVER > 101 Hydrocodone Bitart/Acetaminophen (Mahnomen 5/325mg) 1 tab PO Q4HP PRN PRN Reason: PAIN LEVEL 3-6 Famotidine (Pepcid) 20 mg IV Q12 [facility] Last Admin: 08/02/18 21:10 Dose: 20 mg Heparin Sodium (Porcine) (Heparin) 5,000 unit SQ Q12 [facility] Last Admin: 08/02/18 21:10 Dose: 5,000 unit Piperacillin Sod/Tazobactam (Sod 3.375 gm/ Dextrose) 50 mls @ 100 mls/hr IV Q6H [facility] Last Infusion: 08/03/18 06:08 Dose: Infused Lactated Ringer's (Lactated Ringers) 1,000 mls @ 150 mls/hr IV .Q6H40M [facility] Last Admin: 08/03/18 07:28 Dose: 150 mls/hr Labetalol HCl (Trandate) 10 mg IV Q4HP PRN PRN Reason: if sbp > 180 and or dbp > 100 Morphine Sulfate (Morphine) 2 mg IV Q2HP PRN PRN Reason: pain > 6 Last Admin: 08/03/18 07:37 Dose: 2 mg Naloxone HCl (Narcan) 0.1 mg IV Q2MIN PRN PRN Reason: Opiate Reversal Ondansetron HCl (Zofran) 4 mg IV Q4HP PRN PRN Reason: Nausea And Vomiting Sodium Chloride (Saline Flush) 10 ml IV Q8 [facility] Last Admin: 08/03/18 05:38 Dose: Not Given Transfer Discharge Sum: Hosp Hospital course: Ms. Nguyen is a 52 year old F with h/o gall stones presented to the ER with complaints of abdominal pain. pain started around 2 AM on the day of admission , epigastric, dull pain, which then moved to the right upper quadrant, patient changed character from dull to crampy pain, pain got progressively worse, worse with food, no reliving factors. The patient also admits to having chills and dizziness, no fever She denies any other acute complaints She has no chest pain, palpitations, shortness of breath, no edema feet, some left shoulder pain which is mechanical in nature, no headache, changes in vision , no difficulty in swallowing. She denies any complaints, admits to intermittent constipation. In the ER the patient was afebrile, HR in 70's BP very high 190/120, oxygen sat > 90 on RA labs showed leucocytosis. 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 The patient liver function test started to decline the next day, her eduardo increased from 0.5 to 1.4, the patient had ERCP done , which unfortunately was not successful. The patient symptoms continue to worsen, plan was then to do a cholecystectomy and intra op cholangiogram, however this AM the patients eduardo increased to 6.8. Given the rapid worsening in patients bilirubin, it was felt that the patient should be transferred to a higher center where Interventinal GI and Hepatobiliary surgery/ Interventional radiology services are available. The patient was accepted by Dr Espinal and Dr Ballard for manag[facility] at [facility]. - Time Spent with Patient Total time spent providing and/or coordinating transfer services: Less than 30 minutes Transfer Discharge Sum: Exam - Constitutional Vitals: Vital Signs Temp Pulse Pulse Resp BP BP BP 08/03/18 07:00 98.8 F 16 108/71 08/03/18 03:00 98.9 F 87 16 116/73 08/02/18 23:00 98.1 F 88 14 132/87 08/02/18 20:00 98.6 F 79 18 132/83 08/02/18 18:00 76 16 139/86 08/02/18 17:30 79 16 138/90 08/02/18 17:15 84 16 143/86 08/02/18 17:00 82 15 128/84 08/02/18 16:55 82 16 08/02/18 16:50 80 16 133/85 08/02/18 16:45 97.8 F 86 14 124/86 08/02/18 16:23 94 H 94 H 16 144/93 144/93 08/02/18 16:20 99 H 18 142/104 08/02/18 16:15 101 H 20 143/94 08/02/18 16:10 96 H 18 150/98 08/02/18 16:05 95 H 18 143/94 08/02/18 16:00 97 H 18 151/101 08/02/18 15:55 98 H 20 148/106 08/02/18 15:50 97 H 16 146/99 08/02/18 15:45 99 H 18 150/106 08/02/18 15:40 102 H 18 149/102 08/02/18 15:35 92 H 18 148/109 08/02/18 15:20 94 H 18 150/99 08/02/18 15:15 88 16 154/103 08/02/18 15:10 88 16 146/97 08/02/18 15:05 92 H 18 145/97 08/02/18 15:00 90 14 156/104 08/02/18 14:55 95 H 14 154/101 08/02/18 14:35 85 16 135/108 08/02/18 12:00 97.7 F 80 16 143/82 08/02/18 08:18 79 18 Pulse Ox 08/03/18 07:00 96 08/03/18 03:00 98 08/02/18 23:00 97 08/02/18 20:00 96 08/02/18 18:00 99 08/02/18 17:30 99 08/02/18 17:15 98 08/02/18 17:00 08/02/18 16:55 08/02/18 16:50 08/02/18 16:45 08/02/18 16:23 08/02/18 16:20 08/02/18 16:15 08/02/18 16:10 08/02/18 16:05 08/02/18 16:00 08/02/18 15:55 08/02/18 15:50 08/02/18 15:45 08/02/18 15:40 08/02/18 15:35 08/02/18 15:20 08/02/18 15:15 08/02/18 15:10 08/02/18 15:05 08/02/18 15:00 08/02/18 14:55 08/02/18 14:35 08/02/18 12:00 96 08/02/18 08:18 98 Intake and Output 08/02/18 08/03/18 08/03/18 21:59 05:59 13:59 Intake Total 50 / 50 50 / 50 1050 / 1050 Output Total 650 / 650 675 / 675 Balance -600 / -600 50 / 50 375 / 375 Intake: IV 50 / 50 50 / 50 1050 / 1050 Dextrose 5%-1/2Ns W/20Meq KCl 1 1000 / 1000 ,000 ml @ 75 mls/hr IV .[id number] [facility] Rx#:[id number] Zosyn 3.375 gm In Dextrose 5% 50 / 50 50 / 50 50 / 50 in Water 50 ml @ 100 mls/hr IV Q6H [facility] Rx#:[id number] Oral 0 / 0 Output: Void Amount 650 / 650 675 / 675 Other: Urine Appearance Clear Urine Color Tea Colored # Voids 1 Weight 154 lb Additional comments: Constitutional; Afebrile, cooperative, alert, not in distress. MACHINE SPECIALIST- AOOx3, moving all extremities, no gross focal deficit noted. Transfer Discharge Sum: Data Procedures and tests throughout hospitalization: Pending Orders 08/01/18 19:49 Resuscitation Status Routine 08/01/18 21:29 Admit as Inpatient Routine Ambulate-Progressive .prn Elevate head of bed .ROUTINE IV Insertion/Management QSHIFT Intake and Output qshiftio Notify Provider .routine Vital Signs Q4H Weight Monitoring QHS RD to Adjust Diet/Supplements as Needed Routine Oxygen Order .Routine Pulse Oximetry .ROUTINE 08/02/18 08:19 Acetaminophen [Tylenol] 650 mg PO Q6HP PRN HYDROcodone/APAP 5/325MG [Mahnomen 5/325Mg] 1 tab PO Q4HP PRN Labetalol [Trandate] 10 mg IV Q4HP PRN Naloxone HCl [Narcan] 0.1 mg IV Q2MIN PRN Ondansetron [Zofran] 4 mg IV Q4HP PRN morphine 2 mg IV Q2HP PRN 08/02/18 08:54 Consult to Physician [CONS] Routine 08/02/18 09:00 Famotidine/Pf [Pepcid] 20 mg IV Q12 Heparin 5,000 unit SQ Q12 08/02/18 12:00 Piperacillin Sodium/Tazobactam [Zosyn] 3.375 gm Dextrose 5% in Water 50 ml IV Q6H 08/02/18 14:00 0.9 % Sodium Chloride [Saline Flush] 10 ml IV Q8 08/02/18 14:21 Communication order NOW IV Insertion/Management .ROUTINE IV Insertion/Management NOW Notify Provider PRN Vital Signs .POST-OP RECOVERY Vital Signs .ROUTINE XR ERCP Routine Incentive Spirometry Assess/Tx Q1HWA Oxygen Order .Routine 08/02/18 Lunch NPO Diet (NOW) 08/03/18 07:15 Lactated Ringers 1,000 ml IV 150 mls/hr 08/04/18 04:00 Complete Blood Count DAILY Inpatient Panel DAILY 08/05/18 04:00 Complete Blood Count DAILY Inpatient Panel DAILY 08/06/18 04:00 Complete Blood Count DAILY Inpatient Panel DAILY 08/07/18 04:00 Complete Blood Count DAILY Inpatient Panel DAILY 08/08/18 04:00 Complete Blood Count DAILY Inpatient Panel DAILY Transfer Discharge Sum: A/P - Plan Overall status at transfer: patient is not back to baseline Disposition: Xfer [facility] Quality Measure Queries - VTE Deep Vein Thrombosis/Pulmonary Embolism Present on Admission: No
[2018-08-03] MEDS ORDERED: LACTATED RINGERS 500 ML IV ONE (09:07)
[2018-08-03] MEDS: FAMOTIDINE/PF 20 MG/2 ML VIAL IV SCH (09:08)
[2018-08-03] MEDS: HEPARIN 5,000 UNIT/ML VIAL SQ SCH (09:09)
--- NOTE | 2018-08-06 13:23 | Surgical Pathology Report ---
HISTOLOGY SPECIMEN MICROSCOPIC DIAGNOSIS ESOPHAGUS, RANDOM BIOPSY: -- SQUAMOUS MUCOSA WITH INCREASED INTRAEPITHELIAL EOSINOPHILS, UP TO 70/hpf. -- NO DYSPLASIA OR MALIGNANCY IDENTIFIED. (EBD:djf) CLINICAL HISTORY Esophageal stricture, cannot pass ERCP scope. PROCEDURAL IMPRESSION Rule out eosinophilic esophagitis; Schatzki's ring. GROSS DESCRIPTION Received in formalin labeled random esophageal biopsy, are multiple fragments of bills-thomas tissue ranging in size from 0.1 to 0.4 cm. Totally submitted - one cassette. ([facility]) Electronically Signed by: Esthela Tyson M.D.
== END 2018-08-03 10:09 | disposition short-term general hospital (02) | DRG 446 ==
LOC: ED 15:43 → MEDSUR 21:11
PROVIDERS: ADMIT Internal Medicine; ATTEND Internal Medicine